=== PATIENT | female | born 1955 | race Caucasian/White ===

== ENCOUNTER 2020-12-05 11:56 | Observation (INO) | payer OTHER ==
--- OUTSIDE RECORDS SUMMARY | 2020-12-05 11:58 | XMS REPORT | Continuity of Care Document ---
:1955 Author Organization [facility] t Address [address] [place] [address] Care Team Providers Name Role Phone Unavailable Unavailable Unavailable Problems This patient has no known problems. Allergies, Adverse Reactions, Alerts This patient has no known allergies or adverse reactions. Medications Ordered Filled Start Stop Current Ordering Indication Dosage Frequency Signature Comments Components Source Medication Medication Date Date Medication? Clinician (SIG) Name Name BusPIRone BusPIRone 2018-0 Yes Sandy [address] [facility] HCl HCl 6-26 [facility] as needed [facility] Gabapentin Gabapentin Yes Sandy [address] [facility] Atenolol Atenolol Yes Sandy [address] [facility] [address] [facility] Calcium Calcium Yes Sandy [address] [facility] 600-D 600-D [facility] with a [facility] Multivitami Multivitami Yes Sandy not [facility] n n Millender defined [facility] Meclizine Meclizine Yes Sandy not [facility] HCl HCl [facility] defined [facility] Crestor Crestor Yes Sandy [address] [facility] Millender in evening [facility] Procedures This patient has no known procedures. Encounters Start End Encounter Admission Attending Care Care Encounter Source Date/Time Date/Time Type Type Clinicians Facility Department ID 2020-10-16 2020-10-16 Out[facility] [id number] [facility] 2020-08-08 2020-08-08 [facility] [id number] [facility] 2020-05-15 2020-05-15 [facility] [id number] [facility] 2019-05-08 2019-05-08 [facility] [id number] [facility] 11:40[facility]00 11:40:00 [facility] 2018-11-22 2018-11-22 [facility] [id number] [facility] 14:40:00 14:40:00 [facility] 2018-05-20 2018-05-20 [facility] [id number] [facility] 13:30:00 13:30:00 [facility] 2017-11-23 2017-11-23 [facility] [id number] [facility] 11:15:00 11:15:00 [facility] 2017-11-09 2017-11-09 [facility] [id number] [facility] 11[facility]30:00 11:30:00 [facility] Results This patient has no known results.
[2020-12-05] MEDS ORDERED: ONDANSETRON 4 MG/2 ML VIAL ONE ×2 (12:54→13:54)
[2020-12-05] MEDS ORDERED: NA CHLORIDE 0.9% 1,000 ML ONE (12:54)
[2020-12-05 12:58] LABS: Absolute Lymphocytes (CBC) 1.1 K/uL (0.7-4.9); Basophils % 0.5 % (0-1.3); Hematocrit 40.6 % (36.0-45.0); Lymphocytes % 11.2 % (15.3-44.8); MPV 7.8 fL (7.6-11.3); RBC Red Blood Cell Count 4.38 M/uL (3.86-4.86)
[2020-12-05 13:17] LABS: ALT/SGPT 29 U/L (12-78); AST/SGOT 31 U/L (15-37); Albumin 3.6 g/dL (3.4-5.0); Alkaline Phosphatase 121 U/L (45-117); BUN Blood Urea Nitrogen 17 mg/dL (7-18); Bicarbonate 22 mmol/L (21-32); Bilirubin Direct 0.2 mg/dL (0-0.2); Bilirubin Total 0.9 mg/dL (0.2-1.0); Glucose Level 109 mg/dL (74-106); Lipase 45 U/L (73-393); NT PRO-BNP 320 pg/mL (<125); Potassium 3.8 mmol/L (3.5-5.1); Sodium Level 139 mmol/L (136-145); Troponin (Emerg Dept Use Only) < 0.02 ng/mL (0.0-0.045)
--- NOTE | 2020-12-05 13:18 | RAD REPORT ---
EXAM DESCRIPTION: CTAbdomen Pelvis W Contrast - 12/05/2020 12:59 pm CLINICAL HISTORY: Abdominal pain. vomiting;Abd pain COMPARISON: CT ABD PELVIS W CONTRAST dated 08/04/2011 TECHNIQUE: Biphasic CT imaging of the abdomen and pelvis was performed with 100 ml non-ionic IV cont rast. All CT scans are performed using dose optimization technique as appropriate and may include automated exposure control or mA/KV adjustment according to patient size. FINDINGS: The lung bases are clear. The liver, spleen, pancreas, adrenal glands and kidneys are within normal limits. No bowel obstruction, free air, free fluid or abscess. The appendix is normal. No evidence of signi ficant lymphadenopathy. No suspicious bony findings. IMPRESSION: No acute intra-abdominal or pelvic finding.
--- NOTE | 2020-12-05 13:19 | RAD REPORT ---
EXAM DESCRIPTION: RAD - Chest Single View - 12/05/2020 1:06 pm CLINICAL HISTORY: tachypnea Chest pain. COMPARISON: No comparisons FINDINGS: Portable technique limits examination quality. The lungs are grossly clear. The heart is normal in size. No displaced fractures. IMPRESSION: No acute intrathoracic process suspected.
[2020-12-05] MEDS ORDERED: PROMETHAZINE INJ 25 MG/ML AMP ONE ×2 (13:29→18:04)
[2020-12-05 13:33] LABS: Blood Morphology Comment NOT SEEN (NOT SEEN); Platelet Estimate ADEQ
--- NOTE | 2020-12-05 14:29 | RAD REPORT ---
EXAM DESCRIPTION: US - Abdomen Exam Limited - 12/05/2020 2:19 pm CLINICAL HISTORY: Abd pain;Nausea / vomiting Abdominal pain COMPARISON: No comparisons FINDINGS: The gallbladder demonstrates no gallstones. No pericholecystic fluid or gallbladder wall t hickening. The common bile duct is upper limit of normal for age measuring 7 mm. The liver demonstrates no findings of intrahepatic biliary dilatation. IMPRESSION: Unremarkable examination.
[2020-12-05] MEDS ORDERED: MAGNES/ALUMIN/SIMET 30ML UCUP ONE (14:42)
[2020-12-05] MEDS ORDERED: LIDOCAINE VISCOUS 2% SOLN 15 ML UDC ONE (14:42)
--- NOTE | 2020-12-05 14:50 | ER ---
Nurse's Notes [facility] Name: Candace Spang[facility] Age: 65 yrs Sex: Female : 1955 Arrival Date: 12/05/2020 Time: 11:58 Bed 26 Private MD: Diagnosis: Chest pain, unspecified;Vomiting;Dyspnea, unspecified Presentation: 12/05 12:04 Chief complaint: Patient states: n/v, SOB, midsternal CP started last night. Pt sv hyperventilating at this time. NRB placed on pt not attached to O2. Coronavirus screen: Client denies travel out of the [place] in the last 14 days. Client presents with at least one sign or symptom that may indicate coronavirus-19. Standard/surgical mask placed on the client. Provider contacted for isolation considerations. Ebola Screen: No symptoms or risks identified at this time. Initial Sepsis Screen: Does the patient meet any 2 criteria? RR > 20 per min. No. Patient's initial sepsis screen is negative. Does the patient have a suspected source of infection? No. Patient's initial sepsis screen is negative. Risk Assessment: Do you want to hurt yourself or someone else? Patient reports no desire to harm self or others. Onset of symptoms was December 04, 2020. 12:04 Method Of Arrival: Wheelchair sv 12:04 Acuity: RAY 2 sv Triage Assessment: 12:06 General: Appears in no apparent distress. uncomfortable, Behavior is cooperative, sv anxious. Pain: Denies pain. Neuro: Level of Consciousness is awake, alert, obeys commands, Oriented to person, place, time, situation. Respiratory: Airway is patent Respiratory effort is shallow, Respiratory pattern is hyperventilation. Historical: - Allergies: 20:35 No Known Allergies; ca1 - PSHx: 12:06 Hysterectomy; sv - Immunization history:: Client reports receiving the 2nd dose of the Covid vaccine, Client reports receiving the 1st dose of the Covid vaccine. - Social history:: Smoking status: Patient denies any tobacco usage or history of. - Family history:: not pertinent. - Hospitalizations: : No recent hospitalization is reported. Screenin:10 Abuse screen: Denies threats or abuse. Denies injuries from another. Nutritional ca1 screening: No deficits noted. Tuberculosis screening: No symptoms or risk factors identified. Fall Risk IV access (20 points). Total Vicente Fall Scale indicates No Risk (0-24 pts). Assessment: 12:10 General: Appears in no apparent distress. uncomfortable, Behavior is cooperative, ca1 appropriate for age, anxious. Pain: Complains of pain in chest Pain does not radiate. Pain currently is 3 out of 10 on a pain scale. Pain began 1 day ago. Is intermittent. Neuro: Level of Consciousness is awake, alert, obeys commands, Oriented to person, place, time, situation. Cardiovascular: Heart tones S1 S2 present Capillary refill < 3 seconds Patient's skin is warm and dry. Rhythm is sinus rhythm. Respiratory: Reports shortness of breath at rest Airway is patent Respiratory effort is even, unlabored, Respiratory pattern is regular, symmetrical, hyperventilation Breath sounds are clear bilaterally. GI: Abdomen is round non-distended, Bowel sounds present X 4 quads. Abd is soft and non tender X 4 quads. : No signs and/or symptoms were reported regarding the genitourinary system. EENT: No signs and/or symptoms were reported regarding the EENT system. Derm: Skin is intact, is healthy with good turgor, Skin is pink, warm \T\ dry. Musculoskeletal: Circulation, motion, and sensation intact. Capillary refill < 3 seconds. 14:29 Reassessment: Patient appears in no apparent distress at this time. Patient and/or ca1 family updated on plan of care and expected duration. Pain level reassessed. Patient is alert, oriented x 3, equal unlabored respirations, skin warm/dry/pink. General: Appears in no apparent distress. comfortable, Behavior is calm, cooperative, appropriate for age. 15:36 Reassessment: Patient appears in no apparent distress at this time. Patient and/or ca1 family updated on plan of care and expected duration. Pain level reassessed. Patient is alert, oriented x 3, equal unlabored respirations, skin warm/dry/pink. 16:40 Reassessment: Patient appears in no apparent distress at this time. Patient and/or ca1 family updated on plan of care and expected duration. Pain level reassessed. Patient is alert, oriented x 3, equal unlabored respirations, skin warm/dry/pink. 17:47 Reassessment: Patient appears in no apparent distress at this time. Patient and/or ca1 family updated on plan of care and expected duration. Pain level reassessed. Patient is alert, oriented x 3, equal unlabored respirations, skin warm/dry/pink. 18:50 Reassessment: Patient appears in no apparent distress at this time. Patient and/or ca1 family updated on plan of care and expected duration. Pain level reassessed. Patient is alert, oriented x 3, equal unlabored respirations, skin warm/dry/pink. 19:44 Reassessment: Patient appears in no apparent distress at this time. Patient and/or ca1 family updated on plan of care and expected duration. Pain level reassessed. Patient is alert, oriented x 3, equal unlabored respirations, skin warm/dry/pink. 20:27 Reassessment: Patient appears in no apparent distress at this time. Patient and/or ca1 family updated on plan of care and expected duration. Pain level reassessed. Patient is alert, oriented x 3, equal unlabored respirations, skin warm/dry/pink. Called for report, nurse will call back. Vital Signs: 12:04 BP 154 / 63; Pulse 66; Resp 42; Temp 98; Pulse Ox 98% on R/A; Weight 108.86 kg; Height sv 5 ft. 3 in. (160.02 cm); Pain 0/10; 12:32 BP 142 / 85; Pulse 64; Resp 18 S; Pulse Ox 98% on R/A; ca1 14:29 BP 126 / 65; Pulse 65; Resp 18 S; Pulse Ox 98% on R/A; ca1 15:36 BP 115 / 57; Pulse 65; Resp 18 S; Pulse Ox 99% on R/A; ca1 16:40 BP 117 / 57; Pulse 65; Resp 18 S; Pulse Ox 98% on R/A; ca1 17:47 BP 120 / 51; Pulse 62; Resp 15 S; Pulse Ox 96% ; ca1 18:50 BP 132 / 76; Pulse 61; Resp 16 S; Pulse Ox 97% on R/A; ca1 19:44 BP 132 / 76; Pulse 63; Resp 18 S; Pulse Ox 96% on R/A; ca1 20:27 BP 143 / 69; Pulse 94; Resp 16 S; Pulse Ox 98% on R/A; ca1 12:04 Body Mass Index 42.51 (108.86 kg, 160.02 cm) sv ED Course: 11:58 Patient arrived in ED. wm 12:05 Osmani Nick MD is Attending Physician. rn 12:05 Triage completed. sv 12:06 Arm band placed on. sv 12:10 Patient has correct armband on for positive identification. Bed in low position. Call ca1 light in reach. Side rails up X2. Pulse ox on. NIBP on. Warm blanket given. Head of bed elevated. 12:40 Initial lab(s) drawn, by me, sent to lab. Inserted saline lock: 20 gauge in right ca1 antecubital area, using aseptic technique. Blood collected. 12:59 CT Abd/Pelvis - IV Contrast Only In Process Unspecified. EDMS 13:04 XRAY Chest (1 view) In Process Unspecified. EDMS 13:09 Darlene Gastelum, RN is Primary Nurse. ca1 14:19 US Abdomen Limited In Process Unspecified. EDMS 14:49 José Miguel Nick MD is Hospitalizing Provider. rn 16:40 No provider procedures requiring assistance completed. Patient admitted, IV remains in ca1 place. 19:27 Assisted to bathroom. mb4 Administered Medications: 12:41 Drug: NS 0.9% 1000 ml Route: IV; Rate: 1000 ml; Site: right antecubital; ca1 14:00 Follow up: Response: No adverse reaction; IV Status: Completed infusion; IV Intake: ca1 1000ml 12:42 Drug: Zofran (Ondansetron) 4 mg Route: IVP; Site: right antecubital; ca1 13:12 Follow up: Response: No adverse reaction; Nausea unchanged ca1 13:12 Drug: Phenergan (promethazine) 12.5 mg Route: IVP; Site: right antecubital; ca1 13:35 Follow up: Response: No adverse reaction; Nausea unchanged ca1 13:35 Drug: Zofran (Ondansetron) 4 mg Route: IVP; Site: right antecubital; ca1 15:37 Follow up: Response: No adverse reaction; Nausea is decreased ca1 14:25 Drug: GI Cocktail without - (Maalox Suspension 30 ml, Lidocaine Liquid 2 % 15 ca1 ml) Route: PO; 15:37 Follow up: Response: No adverse reaction; Marked relief of symptoms ca1 17:45 Drug: Phenergan (promethazine) 12.5 mg Route: IVP; Site: right antecubital; ca1 19:10 Follow up: Response: No adverse reaction; Nausea is decreased ca1 Intake: 14:00 IV: 1000ml; Total: 1000ml. ca1 Outcome: 14:49 Decision to Hospitalize by Provider. rn 20:37 Admitted to Med/surg accompanied by tech, via wheelchair, room 230, with chart, Report ca1 called to LUIS ANTONIO Leyva 20:37 Condition: improved 20:37 Instructed on the need for admit. 20:55 Patient left the ED. ca1 Signatures: Dispatcher [employer] Essence Singer RN RN Osmani Nick MD MD rn Baxter, Mackenzie 4 Darlene Gastelum RN RN ca1 Lyric Thompson Corrections: (The following items were deleted from the chart) 12:06 12:06 Allergies: No Known Allergies; [facility] 14:29 12:10 Warm blanket given. Head of bed ca1 ca1 14:30 12:10 Respiratory: Airway is patent Respiratory effort is even, unlabored, Respiratory ca1 pattern is regular, symmetrical, hyperventilation Breath sounds are clear bilaterally. ca1 15:10 12:10 Pain: Denies pain. ca1 ca1 20:47 20:37 Admitted to Med/surg accompanied by tech, via stretcher, room 230, with chart, ca1 Report called to LUIS ANTONIO Leyva ca1
--- NOTE | 2020-12-05 14:50 | EDPHYS ---
Physician Documentation [facility] Name: Candace Spangler Age: 65 yrs Sex: Female : 1955 Arrival Date: 12/05/2020 Time: 11:58 Bed 26 Private MD: ED Physician Osmani Nick HPI: 12/05 13:36 This 65 yrs old Female presents to ER via Wheelchair with complaints of rn Shortness Of Breath - VOMITTING. 13:36 The patient presents to the emergency department with nausea, vomiting. Onset: The rn symptoms/episode began/occurred last night. Possible causes: unknown. The symptoms are aggravated by nothing. The symptoms are alleviated by nothing. Associated signs and symptoms: Pertinent positives: chest pain, Pertinent negatives: fever, GI bleeding. Severity of symptoms: At their worst the symptoms were moderate in the emergency department the symptoms are unchanged. The patient has not experienced similar symptoms in the past. The patient has not recently seen a physician. Reports began vomiting last night, "atleast 10 times", no blood, feels like acid, no fever, reports chest pain, no diarrhea. No trauma. . Historical: - Allergies: 20:35 No Known Allergies; ca1 - PSHx: 12:06 Hysterectomy; sv - Immunization history:: Client reports receiving the 2nd dose of the Covid vaccine, Client reports receiving the 1st dose of the Covid vaccine. - Social history:: Smoking status: Patient denies any tobacco usage or history of. - Family history:: not pertinent. - Hospitalizations: : No recent hospitalization is reported. ROS: 13:36 Constitutional: Negative for fever, chills, and weight loss, Eyes: Negative for injury, rn pain, redness, and discharge, ENT: Negative for injury, pain, and discharge, Neck: Negative for injury, pain, and swelling, Cardiovascular: Negative for palpitations, and edema, Respiratory: Negative for shortness of breath, cough, wheezing, and pleuritic chest pain, Abdomen/GI: + vomiting, negative for diarrhea Back: Negative for injury and pain, : Negative for injury, bleeding, discharge, and swelling, MS/Extremity: Negative for injury and deformity, Skin: Negative for injury, rash, and discoloration, Neuro: Negative for headache, numbness, tingling, and seizure. 13:36 All other systems are negative. rn Exam: 13:36 Constitutional: This is a well developed, well nourished patient who is awake, alert, rn hyperventilating and holding emesis bag Head/Face: Normocephalic, atraumatic. Eyes: Periorbital areas with no swelling, redness, or edema. ENT: dry MM Cardiovascular: Regular rate and rhythm. No pulse deficits. Respiratory: + hyperventilating, able to slow it down when directed Abdomen/GI: soft, non-tender, no masses Skin: Warm, dry MS/ Extremity: Pulses equal, no cyanosis. Neuro: Awake and alert, GCS 15, oriented to person, place, time, and situation. Cranial nerves II-XII grossly intact. Motor strength 5/5 in all extremities. Sensory grossly intact. Vital Signs: 12:04 BP 154 / 63; Pulse 66; Resp 42; Temp 98; Pulse Ox 98% on R/A; Weight 108.86 kg; Height sv 5 ft. 3 in. (160.02 cm); Pain 0/10; 12:32 BP 142 / 85; Pulse 64; Resp 18 S; Pulse Ox 98% on R/A; ca1 14:29 BP 126 / 65; Pulse 65; Resp 18 S; Pulse Ox 98% on R/A; ca1 15:36 BP 115 / 57; Pulse 65; Resp 18 S; Pulse Ox 99% on R/A; ca1 16:40 BP 117 / 57; Pulse 65; Resp 18 S; Pulse Ox 98% on R/A; ca1 17:47 BP 120 / 51; Pulse 62; Resp 15 S; Pulse Ox 96% ; ca1 18:50 BP 132 / 76; Pulse 61; Resp 16 S; Pulse Ox 97% on R/A; ca1 19:44 BP 132 / 76; Pulse 63; Resp 18 S; Pulse Ox 96% on R/A; ca1 20:27 BP 143 / 69; Pulse 94; Resp 16 S; Pulse Ox 98% on R/A; ca1 12:04 Body Mass Index 42.51 (108.86 kg, 160.02 cm) sv MDM: 12:05 Patient medically screened. rn 14:48 Differential diagnosis: Nonspecific abd pain, gastritis, cholecystitis, pancreatitis, rn appendicitis, diverticulitis, viral gastroenteritis, gastroenteritis. Data reviewed: vital signs, nurses notes, lab test result(s), EKG, radiologic studies, CT scan, plain films, and as a result, I will admit patient. Counseling: I had a detailed discussion with the patient and/or guardian regarding: the historical points, exam findings, and any diagnostic results supporting the discharge/admit diagnosis, lab results, radiology results, the need for further work-up and treatment in the hospital. Response to treatment: the patient's symptoms have mildly improved after treatment, and as a result, I will admit patient. Admission orders: after a detailed discussion of the patient's condition and case, the admit orders are written by me. ED course: Pt still with tachypnea although much better, no oxygen requirement, and neg CXR. No acute findings in CT abdomen. Labs unremarkable, still complaints of nausea. No help from GI cocktail. Will admit for further evaluation and symptom control. . 12/05 12:10 Order name: Basic Metabolic Panel; Complete Time: 13:20 12/05 12:10 Order name: CBC with Diff; Complete Time: 13:55 12/05 12:10 Order name: Hepatic Function; Complete Time: 13:20 12/05 12:10 Order name: Lipase; Complete Time: 13:20 12/05 12:10 Order name: Troponin (emerg Dept Use Only); Complete Time: 13:20 12/05 12:10 Order name: BNP; Complete Time: 13:20 12/05 12:10 Order name: CT Abd/Pelvis - IV Contrast Only; Complete Time: 13:20 12/05 12:10 Order name: XRAY Chest (1 view); Complete Time: 13:20 12/05 13:21 Order name: US Abdomen Limited; Complete Time: 14:40 12/05 13:33 Order name: Manual Differential; Complete Time: 13:55 EDIN 12/05 15:40 Order name: CREATININE WHOLE BLOOD EDIN 12/05 15:58 Order name: COVID-19 : Document "Date of Symptom Onset" if Symptomatic. sv 12/05 16:45 Order name: CORONAVIRUS EDIN 12/05 17:43 Order name: SARS-COV-2 RT PCR EDIN 12/05 12:10 Order name: IV Saline Lock; Complete Time: 12:47 12/05 12:10 Order name: Labs collected and sent; Complete Time: 12:47 12/05 12:10 Order name: EKG; Complete Time: 12:11 rn 12/05 12:10 Order name: EKG - Nurse/Tech; Complete Time: 12:47 rn Administered Medications: 12:41 Drug: NS 0.9% 1000 ml Route: IV; Rate: 1000 ml; Site: right antecubital; ca1 14:00 Follow up: Response: No adverse reaction; IV Status: Completed infusion; IV Intake: ca1 1000ml 12:42 Drug: Zofran (Ondansetron) 4 mg Route: IVP; Site: right antecubital; ca1 13:12 Follow up: Response: No adverse reaction; Nausea unchanged ca1 13:12 Drug: Phenergan (promethazine) 12.5 mg Route: IVP; Site: right antecubital; ca1 13:35 Follow up: Response: No adverse reaction; Nausea unchanged ca1 13:35 Drug: Zofran (Ondansetron) 4 mg Route: IVP; Site: right antecubital; ca1 15:37 Follow up: Response: No adverse reaction; Nausea is decreased ca1 14:25 Drug: GI Cocktail without - (Maalox Suspension 30 ml, Lidocaine Liquid 2 % 15 ca1 ml) Route: PO; 15:37 Follow up: Response: No adverse reaction; Marked relief of symptoms ca1 17:45 Drug: Phenergan (promethazine) 12.5 mg Route: IVP; Site: right antecubital; ca1 19:10 Follow up: Response: No adverse reaction; Nausea is decreased ca1 Disposition Summary: 12/05/20 14:49 Hospitalization Ordered Hospitalization Status: Observation rn Provider: José Miguel Nick [facility]n Condition: Stable rn Problem: new rn Symptoms: have improved rn Bed/Room Type: Standard rn Room Assignment: 230(12/05/20 19:53) cg Diagnosis - Chest pain, unspecified rn - Vomiting rn - Dyspnea, unspecified rn Forms: - Medication Reconciliation Form rn - SBAR form rn Signatures: Dispatcher [employer] Essence Singer RN RN Osmani Blount MD MD rn Garcia, Cindy, RN RN cg Darlene Gastelum, RN RN ca1 Corrections: (The following items were deleted from the chart) 12:06 12:06 Allergies: No Known Allergies; sv sv 19:53 14:49 rn cg
--- NOTE | 2020-12-05 15:36 | P.HP ---
Certification for Inpatient Patient admitted to: Observation With expected LOS: <2 Midnights Practitioner: I am a practitioner with admitting privileges, knowledge of patient current condition, hospital course, and medical plan of care. Services: Services provided to patient in accordance with Admission requirements found in Title 42 Section 412.3 of the Code of Federal Regulations Patient History Date of Service: 12/05/20 Primary Care Provider: Hector Reason for admission: intractable nausea/vomiting, chest pain History of Present Illness: 65yo F, PMH: HTN and palpitations, presents to ED due to progressively worsening nausea/vomiting, associated with epigastric pain. Onset was ~9pm last night, was watching TV when she became nauseated. Emesis every hour, nonbloody. Never had anything like this before. Reports intermittent GERD symptoms, no acute worsening lately, no use of NSAIDs lately. Denies fever/chills, no change in bowel/bladder habits, no tenderness in abdomen, no new numbness/tingling, no shortness of breath. Workup in ED rather unremarkable - labs, CT abd/pelvix, CXR, RUQ U/S except for isolated elevation of alk phos. Patient was given zofran, phenergan, and GI cocktail with minimal relief of nausea. She reported moderate improvement in pain, but feels like a "knot" is there. Allergies No Known Allergies Allergy (Unverified 09/10/11 20:05) Home Medications: Hydrocodone/Acetaminophen [[place] 5-325 Tablet] 1 - 2 each PO Q6H PRN #20 tablet 09/11/11 - Past Medical/Surgical History -: HTN -: palpitations -: Hysterectomy - Family History Mother -: Cancer - Social History Smoking Status: Former smoker (Quit this many years in) Alcohol use: Yes CD- Drugs: No Caffeine use: No Place of Residence: Home Review of Systems 10-point ROS is otherwise unremarkable Physical Examination - Physical Exam General: Alert, Mild distress HEENT: PERRLA, EOMI, Sclerae nonicteric Neck: Supple, No LAD Respiratory: Clear to auscultation bilaterally, Normal air movement Cardiovascular: No edema, Regular rate/rhythm, Normal S1 S2 Capillary refill: <2 Seconds Gastrointestinal: Soft and benign, Non-distended, No tenderness Musculoskeletal: No swelling, No erythema, No tenderness Integumentary: No rashes, No significant lesion Neurological: Normal speech, Normal strength at 5/5 x4 extr, Normal affect - Studies Laboratory Data (last 24 hrs) 12/05/20 12:35: WBC 10.10, Hgb 13.5, Hct 40.6, Plt Count 380 12/05/20 12:35: Sodium 139, Potassium 3.8, BUN 17, Creatinine 0.77, Glucose 109 H, Total Bilirubin 0.9, AST 31, ALT 29, Alkaline Phosphatase 121 H, Lipase 45 L Assessment and Plan - Advance Directives Does patient have a Living Will: No Does patient have a Durable POA for Healthcare: No Physician Review Additional Text: Problem list Intractable nausea/vomiting Epigastric pain Hypertension Palpitations -will bring patient in for obs, unclear etiology of nausea/vomiting -patient with intermittent history of GERD symptoms, however no recent flare -possible gastric ulcer/gastritis, no tenderness at time of my exam after received antiemetics and GI cocktail -CT abdomen/pelvis and right upper quadrant ultrasound negative for acute process -lipase negative, no tenderness, do not suspect pancreatitis -continue antiemetic p.r.n., Protonix, Carafate -clear liquid diet -meet benefit from a HIDA scan if no improvement in symptoms -check UA -elevated alk phosh, unclear etiology, U/S ok, repeat in AM -check TSH/T4 -trend trop VTE: lovenox Code: full Dispo: anticipate dc home in 24-48hrs Time Spent Managing Pts Care (In Minutes): 60
[2020-12-05] MEDS ORDERED: ONDANSETRON 4 MG/2 ML VIAL IV PRN (21:18)
[2020-12-05] MEDS ORDERED: PROMETHAZINE INJ 25 MG/ML AMP IV PRN (21:18)
[2020-12-05] MEDS ORDERED: SODIUM CHLORIDE 0.9% 10ML INJ IV PRN (21:18)
[2020-12-05 22:05] LABS: Troponin I < 0.02 ng/mL (0.0-0.045)
[2020-12-05 22:07] LABS: Thyroid Stimulating Hormone 0.91 uIU/mL (0.360-3.740)
[2020-12-05] MEDS: SUCRALFATE 1 GM TABLET PO SCH (22:11)
[2020-12-05] MEDS: NA CHLORIDE 0.9% 1,000 ML IV SCH (22:11)
[2020-12-05] MEDS: PANTOPRAZOLE 40 MG INJ IVP SCH (22:11)
[2020-12-05 23:49] VITALS: BMI 42.5
[2020-12-06 04:33] LABS: Absolute Lymphocytes (CBC) 2.7 K/uL (0.7-4.9); Basophils % 0.8 % (0-1.3); Hematocrit 34.5 % (36.0-45.0); Lymphocytes % 31.6 % (15.3-44.8); MPV 7.7 fL (7.6-11.3); RBC Red Blood Cell Count 3.71 M/uL (3.86-4.86)
[2020-12-06 04:49] LABS: ALT/SGPT 22 U/L (12-78); AST/SGOT 32 U/L (15-37); Albumin 2.9 g/dL (3.4-5.0); Alkaline Phosphatase 84 U/L (45-117); BUN Blood Urea Nitrogen 11 mg/dL (7-18); Bicarbonate 26 mmol/L (21-32); Glucose Level 86 mg/dL (74-106); Magnesium 2.4 mg/dL (1.8-2.4); Potassium 3.3 mmol/L (3.5-5.1); Protein, Total 6.2 g/dL (6.4-8.2); Sodium Level 144 mmol/L (136-145)
[2020-12-06] MEDS ORDERED: POTASSIUM CL SA 10 MEQ TAB PO ONE (06:00)
[2020-12-06 06:13] LABS: Urine Appearance CLEAR (Clear); Urine Bilirubin NEGATIVE (Negative); Urine Blood NEGATIVE (Negative); Urine Color YELLOW (Yellow); Urine Glucose NEGATIVE (Negative); Urine Protein NEGATIVE (Negative); Urine Specific Gravity 1.015 (1.005-1.030); Urine Urobilinogen 0.2 mg/dL (0.2-1.0)
[2020-12-06 06:26] LABS: Urine Microscopic Reflex NO UMIC
[2020-12-06] MEDS: NA CHLORIDE 0.9% 1,000 ML IV SCH (07:18)
--- NOTE | 2020-12-06 07:45 | EKG ---
Test Date: 2020-12-05 Test Time: 12:44:08 Horticultural Worker: PAUL MEASUREMENT RESULTS: Intervals: Rate: 56 VA: 148 QRSD: 72 QT: 482 QTc: 465 [place]: P: 44 VA: 148 QRS: 18 T: -8 INTERPRETIVE STATEMENTS: Sinus bradycardia with sinus arrhythmia Nonspecific T wave abnormality Abnormal ECG Compared to ECG 09/07/2011 10:39:58 T-wave abnormality now present Sinus rhythm no longer present Electronically Signed On 12-06-20 07:42:46 CDT by Raymond Pressley
[2020-12-06 09:32] VITALS: BP 111/55; TEMP 98.2
[2020-12-06 09:57] VITALS: O2SAT 92
[2020-12-06] MEDS: SUCRALFATE 1 GM TABLET PO SCH (10:36)
[2020-12-06] MEDS: PANTOPRAZOLE 40 MG INJ IVP SCH (10:36)
--- NOTE | 2020-12-06 21:14 | P.DS ---
Admission Date: 12/05/20 Discharge Date: 12/06/20 Primary Care Provider: Hector Disposition: ROUTINE DISCHARGE Discharge Condition: GOOD Reason for Admission: intractable nausea/vomiting, chest pain Procedures: CT Abd/pelvis (12/05): The lung bases are clear. The liver, spleen, pancreas, adrenal glands and kidneys are within normal limits. No bowel obstruction, free air, free fluid or abscess. The appendix is normal. No evidence of significant lymphadenopathy. No suspicious bony findings. IMPRESSION: No acute intra-abdominal or pelvic finding. CXR (12/05): FINDINGS: Portable technique limits examination quality. The lungs are grossly clear. The heart is normal in size. No displaced fractures. IMPRESSION: No acute intrathoracic process suspected. Abd U/S (12/05): FINDINGS: The gallbladder demonstrates no gallstones. No pericholecystic fluid or gallbladder wall thickening. The common bile duct is upper limit of normal for age measuring 7 mm. The liver demonstrates no findings of intrahepatic biliary dilatation. IMPRESSION: Unremarkable examination. Problem list Intractable nausea/vomiting Epigastric pain Hypertension Palpitations Brief History of Present Illness: 65yo F, PMH: HTN and palpitations, presents to ED due to progressively worsening nausea/vomiting, associated with epigastric pain. Onset was ~9pm last night, was watching TV when she became nauseated. Emesis every hour, nonbloody. Never had anything like this before. Reports intermittent GERD symptoms, no acute worsening lately, no use of NSAIDs lately. Denies fever/chills, no change in bowel/bladder habits, no tenderness in abdomen, no new numbness/tingling, no shortness of breath. Workup in ED rather unremarkable - labs, CT abd/pelvix, CXR, RUQ U/S except for isolated elevation of alk phos. Patient was given zofran, phenergan, and GI cocktail with minimal relief of nausea. She reported moderate improvement in pain, but feels like a "knot" is there. Hospital Course: Patient was treated with anti-emetics, IVF, protonix and carafate. She had complete resolution of her symptoms overnight and tolerated a clear liquid diet. She reported feeling significantly better and wanting to go home. Unclear etiology of her symptoms, reported no significant difference after heather fate, and never had tenderness of her abdomen. ESR (32) and CRP (10) were mildly elevated, but nonspecific. She remained afebrile and without leukocytosis. Discharged home to follow up with PCP in 3-5 days. Vital Signs/Physical Exam: Temp Pulse Resp BP Pulse Ox 98.2 F 68 18 111/55 L 95 12/06/20 08:00 12/06/20 08:00 12/06/20 08:00 12/06/20 08:00 12/06/20 08:00 General: Alert, In no apparent distress, Oriented x3 HEENT: Mucous membr. moist/pink, Sclerae nonicteric Neck: Supple, No LAD Respiratory: Clear to auscultation bilaterally, Normal air movement Cardiovascular: No edema, Regular rate/rhythm, Normal S1 S2 Gastrointestinal: Soft and benign, Non-distended, No tenderness Musculoskeletal: No erythema, No tenderness Integumentary: No rashes, No significant lesion Neurological: Normal speech, Normal affect Laboratory Data at Discharge: WBC 8.60 K/uL (4.3-10.9) D 12/06/20 04:11 Hgb 11.8 g/dL (12.0-15.0) L 12/06/20 04:11 Hct 34.5 % (36.0-45.0) L D 12/06/20 04:11 Plt Count 287 K/uL (152-406) D 12/06/20 04:11 Sodium 144 mmol/L (136-145) 12/06/20 04:11 Potassium Cancelled 12/06/20 12:00 BUN 11 mg/dL (7-18) 12/06/20 04:11 Creatinine 0.59 mg/dL (0.55-1.3) 12/06/20 04:11 Glucose 86 mg/dL (74-106) 12/06/20 04:11 Magnesium 2.4 mg/dL (1.8-2.4) 12/06/20 04:11 Total Bilirubin 1.0 mg/dL (0.2-1.0) 12/06/20 04:11 AST 32 U/L (15-37) 12/06/20 04:11 ALT 22 U/L (12-78) 12/06/20 04:11 Alkaline Phosphatase 84 U/L (45-117) 12/06/20 04:11 Troponin I < 0.02 ng/mL (0.0-0.045) 12/06/20 09:39 Lipase 45 U/L (73-393) L 12/05/20 12:35 Home Medications: Atenolol [Tenormin] 25 mg PO BEDTIME 12/05/20 Rosuvastatin Calcium [Crestor] 5 mg PO BEDTIME 12/05/20 Ondansetron [Zofran] 4 mg PO Q6H PRN 3 Days #10 tab 12/06/20 New Medications: Ondansetron [Zofran] 4 mg PO Q6H PRN 3 Days #10 tab PRN Reason: Nausea / Vomiting Physician Discharge Instructions: PROBLEM: Intractable nausea and vomiting GOAL: Clear understanding of disease process INSTRUCTIONS: Diet: [place] Activity: As tolerated If you have any questions regarding your stay call [phone] If your symptoms worsen call 911 or go to the ED You had resolution of your symptoms. you were treated with anti nausea medication and acid reflux medications. You were evaluated by CT abd/pelvis, abdominal ultrasound of liver/gallbladder, and bloodwork was all within normal limits, except very mild elevation in nonsp ecific inflammatory markers. Diet: [place] Activity: Ad sony Followup: Guillaume Young, DO [Primary Care Provider] - Time spent managing pt's care (in minutes): 40
== END 2020-12-06 10:54 | disposition home or self-care (01) ==
LOC: ER 11:56 → ERHOLD 15:25 → 2ND 20:37
PROVIDERS: ADMIT Hospitalist; ATTEND Hospitalist
DX: R11.2 Nausea with vomiting, unspecified (principal); R10.13 Epigastric pain; I10 Essential (primary) hypertension; R00.2 Palpitations; Z20.822 Contact with and (suspected) exposure to COVID-19; Z87.891 Personal history of nicotine dependence
CPT/HCPCS: 96361; 93005; 85025 ×2; 80048; 36415; 83735; 82565; 80076; 85652; 84443; 81003; 84484 ×4; 84439; 83690; 80053; 83880; 86140; 74177; 71045; 76705; 94760 ×2; 96375; 96374; 99285; U0003; Q9967; J2550 ×2; C9113 ×2; J7030 ×2; J2405 ×2; G0378 ×2